=== PATIENT | male | born 1955 | race Caucasian/White ===

== ENCOUNTER → 2025-06-11 08:06 | Outpatient (CLI) | payer MEDICARE, SELFPAY ==
--- NOTE | 2025-06-11 08:21 | EKG_ITS ---
[address] [address] Test Date: 2025-06-11 Pat Name: Adithya Mansfield Department: [facility] Room: Gender: Male Vice President Of Business Development: : 1955 Requested By: Order Number: [id number] Reading MD: Shashi Carter Measurements Intervals [place] Rate: 62 P: 35 DE: 204 QRS: -33 QRSD: 88 T: 38 QT: 398 QTc: 403 Interpretive Statements Normal sinus rhythm Left axis deviation Electronically Signed On 06-11-2025 10:16:42 PDT by Shashi Carter
[2025-06-11 10:34] LABS: Add Manual Diff / Slide Review NO; Hematocrit 39.9 % (41-53); Hemoglobin 13.6 g/dL (13.5-17.5); Lymphocytes Absolute Auto 1200 /uL (1100-4500); Mean Corpuscular HGB Conc 34.2 % (30-36); Mean Corpuscular Hemoglobin 35.3 PG (26-34); Mean Corpuscular Volume 103.4 fL (80-100); Platelet Count 215 X10^3/uL (150-400)
[2025-06-11 11:06] LABS: HEMOLYSIS < 15 (0-50); Iron 157 ug/dL (49-181)
[2025-06-11 11:07] LABS: Albumin 4.5 g/dL (3.5-5.0)
[2025-06-11 11:10] LABS: Alanine Aminotransferase 16 IU/L (<50); Albumin 4.5 g/dL (3.5-5.0); Albumin Globulin Ratio 1.7 (1.0-2.8); Alkaline Phosphatase 57 U/L (38-126); Blood Urea Nitrogen 13 mg/dL (9-20); Carbon Dioxide 24 mmol/L (22-32); Chloride 105 mmol/L (98-107); Estimated Glomerular Filt Rate > 60 mL/min (>60); Globulin 2.7 g/dL (1.7-4.1); HEMOLYSIS < 15 (0-50); Potassium 4.4 mmol/L (3.4-5.1); Sodium 137 mmol/L (137-145); Total Protein 7.2 g/dL (6.3-8.2)
[2025-06-11 11:15] LABS: Prealbumin 27.5 mg/dL (17.6-36.0)
[2025-06-11 11:19] LABS: Percent Iron Saturation 48 % (20-50); Total Iron Binding Capacity 329 ug/dL (261-462); Transferrin 275 mg/dL (206-381)
[2025-06-11 11:19] LABS: Hemoglobin A1C% w Est Avg Glu 5.5 % (4.0-6.0)
[2025-06-11 11:25] LABS: Vitamin D 25 Hydroxy (D3) 46.9 ng/mL (30.0-100.0)
[2025-06-11 11:38] LABS: Thyroid Stimulating Hormone 1.60 uIU/mL (0.47-4.68)
[2025-06-11 11:44] LABS: Ferritin 62 ng/mL (18-464)
[2025-06-11 12:26] LABS: Calcium 9.4 mg/dL (8.4-10.2); Glucose 139 mg/dL (70-99)
== END ==
PROVIDERS: Orthopaedic Surgery Adult Reconstructive Orthopaedic Surgery; PCP Student in an Organized Health Care Education/Training Program; Referring Provider Student in an Organized Health Care Education/Training Program; Visit Provider Student in an Organized Health Care Education/Training Program
DX: Z01.818 Encounter for other preprocedural examination (principal); M25.561 Pain in right knee; R53.83 Other fatigue; M17.0 Bilateral primary osteoarthritis of knee; Z86.79 Personal history of other diseases of the circulatory system; I82.890 Acute embolism and thrombosis of other specified veins; R01.1 Cardiac murmur, unspecified; G89.29 Other chronic pain
CPT/HCPCS: 36415; 80053; 82040; 82306; 82728; 83036; 83540; 83550; 84134; 84443; 85025; 93005

== ENCOUNTER 2025-07-13 06:16 | Day surgery (SDC) | payer MEDICARE, SELFPAY ==
[2025-07-07 08:34] VITALS: BMI 27.1
[2025-07-13] VITALS (7 sets, daily range): BP systolic 117–148; BP diastolic 56–78; PULSE 71–84; RESP 14–17; TEMP 36.2–36.7; O2SAT 95–98
--- NOTE | 2025-07-13 | DI.RAD.S_ITS ---
PROCEDURE: XR KNEE RT 1TO2V
[2025-07-13] MEDS: ACETAMINOPHEN 325 MG TABLET 975 MG PO (07:12)
[2025-07-13] MEDS: LACTATED RINGERS 1,000 ML 42 ML IV ×2 (07:12→08:47)
--- NOTE | 2025-07-13 07:15 | P.OP.PRE_ITS ---
Pre-operative Note
--- NOTE | 2025-07-13 07:15 | PM.PREOP ---
Pre-operative Note Interval Note History & Physical reviewed/Exam performed by Physician: Yes Changes to H&P: No
[2025-07-13] MEDS: TRANEXAMIC ACID 1,000 MG VIAL 1000 MG INJ ×2 (08:00→09:12)
--- NOTE | 2025-07-13 08:28 | SUR.OPER ---
Supine on padded OR bed. Pillow under head, arms secured on padded armboards <90 degree abduction. Safety belt across torso. Non-operative left leg secured with tape over blanket over lower leg. Operative left leg secured in DeMayo/Jeremy/Nathe positioner. Foam padded brace at thigh of operative leg. Surgeon approves of final positioning.
[2025-07-13] MEDS: KETOROLAC 30 MG/ML VIAL 15 MG IV (08:39)
--- NOTE | 2025-07-13 09:19 | P.OP_ITS ---
Operative Date/Time/Diagnoses
--- NOTE | 2025-07-13 09:19 | PM.OP.1 ---
Operative Date/Time/Diagnoses Date of procedure: 07/13/25 Time of procedure: 07:45 Pre-op diagnosis: Right knee osteoarthritis Post-op diagnosis: same Procedure & Clinicians Procedure: Right total knee arthroplasty Same procedure(s) as scheduled: Yes Surgeon: Michael Coles Assisted?: Yes [employer] Basis Trader: Alyson Devine Anesthesia Type: General, Peripheral nerve block and Local Operative Notes Findings: Severe arthritis Applied: implant(s) Estimated Blood Loss (mL): 100 Tourniquet time (min): 34 Procedure in detail: Right Gap-Balanced Theresa Persona Medial-Congruent Primary Total Knee Arthroplasty Implants: Size 11 Cruciate Retaining Femoral Component Size G Tibial Component Size 10 Medial Congruent Polyethylene Insert Unresurfaced Patella Procedure Summary: This 69-year-old male patient had varus knee arthritis. I cut the tibia in slight varus in order to balanced the knee without the need for soft tissue releases. Bone quality was good so uncemented fixation was utilized. The knee balanced in 0? of external rotation for the flexion gap. Procedure in Detail: This patient was seen preoperatively and evaluated for knee pain which was refractory to numerous nonoperative treatment modalities. Their pain correlated with radiographic changes demonstrating significant degeneration in the knee joint. The risks and benefits of continued nonoperative management versus operative management were discussed at length and all of the patient?s questions were answered. Additional educational materials providing further details beyond our discussion in clinic were provided via a publicly available patient education video which included the incidence of medical complications associated with total knee arthroplasty, reasons for revision following total knee arthroplasty, and patient satisfaction rates following total knee arthroplasty. With this understanding of the risks inherent to the procedure, the patient elected to move forward with operative management. Following preoperative optimization, the patient was scheduled for surgery. The patient was met in the preoperative holding area the day of the procedure and all questions were answered. The patient?s nares were swabbed in order to decolonize them from MRSA. Informed consent was signed and the right limb was marked with indelible ink.? The patient was brought back to the operating room where anesthesia was induced. The patient was transferred to the operating table and all bony prominences were padded. The operative site was prepped and draped in the usual sterile fashion. A second prep stick was utilized following drape placement. The incision was marked corresponding to the medial aspect of the tibial tubercle and the patella. Ioban was wrapped circumferentially around the knee. Prior to incision, tranexamic acid and cefazolin were administered. Templating images were displayed. A timeout procedure was performed verifying the patient?s identity, medical comorbidities, allergies, relevant medications, anesthesia type and the surgical plan. All present were in agreement. The assistance of a physician bilingual sales assistant was required for positioning, room setup, soft tissue retraction and wound closure. Without this assistance, the procedure would have been significantly more challenging and time consuming.?? The tourniquet was inflated prior to incision. I made an anterior incision over the knee, dissected through the subcutaneous tissues and identified the lateral border of the VMO. Medial and lateral soft tissue flaps were developed. A mid-vastus arthrotomy was performed ensuring that adequate capsular tissue would remain for closure at the conclusion of the procedure. The knee was brought into extension and the medial soft tissues were released off the joint line of the tibia. Tissue overlying the distal anterior femur was released to allow for later assessment for anterior notching but left in place. A portion of the retropatellar fat pad was excised while protecting the patellar tendon. The patella was everted. The patella was not resurfaced. Osteophytes were excised and a lateral facetectomy was performed. The patella was released from its everted position.?? I flexed the knee to 90 degrees and placed retractors to allow access to the notch. An opening reamer was used to gain access to the femoral canal and an intramedullary lalit was introduced into the canal. Diaphyseal fit was obtained in order to plan a distal femoral resection at 5 degrees relative to the anatomic axis. A +1 resection was planned and assessed using an jacinta wing. I then made the cut using a sagittal saw. This provided additional access to the femoral notch. The ACL and PCL were excised. Retractors were placed on the lateral and medial tibia. I hyperflexed the knee while externally rotating it to sublux the tibia anteriorly. I placed a Deonte retractor posteriorly and used this to provide additional anterior subluxation. The remainder of the PCL root was released. An extramedullary guide was positioned for a resection in slight varus. A +2 resection off the medial tibia was planned and the tibial cutting jig was pinned in place. I evaluated the depth, varus-valgus alignment and slope of the planned tibial resection prior to making the cut. I cut the tibia with a sagittal saw while using retractors to protect the MCL, patellar tendon, and posterolateral structures.? The knee was repositioned in extension and the Fuzion soft tissue balancing gauge was introduced. This demonstrated that there was 1 degree of tightness medially relative to laterally. Given the medial congruent design of this implant I did not perform a medial release in order to attempt to equalize this. When 40 pounds of force was applied to the Fuzion device, the extension gap opened to 10 mm. I moved the knee into 90 degrees of flexion, and the Fuzion device was recalibrated by removing a 9 mm soo to allow assessment of the flexion gap. The Fuzion block was placed perpendicular to the resected surface of the tibia and the resected surface of the distal femur. Forty pounds of traction was applied to match the tension of the extension gap. This externally rotated the femur to 0 degrees. Pins were placed in the 10 mm holes. Appropriate sizing was determined and a 4-in-1 block was placed. This was double checked using the Fuzion device to ensure that it would open to an equal distance as the extension gap when the same amount of force was applied. The Fuzion block was also used to assess flexion gap symmetry. An jacinta wing was used to ensure there would be no anterior notching. Retractors were placed to protect the soft tissues during resection. Captured cuts were performed with a sagittal saw for the anterior and posterior femur as well as the corresponding chamfers.?A laminar lock setter and retractors were used to expose the posterior knee and the menisci and posterior osteophytes were removed. Trial components were placed and the construct was assessed. Range of motion was assessed by ensuring the knee could achieve full extension and assessing maximum passive knee flexion by elevating the femur and allowing the heel to passively fall towards the buttock. Gap symmetry was assessed by stressing the medial and lateral compartments in both extension and flexion. Laxity was assessed in both extension and flexion and the polyethylene trial was adjusted with shims as necessary. Patellar tracking was assessed with knee flexion. Once satisfied with the construct, I moved forward with implant insertion. Lug holes were drilled in the femur and the tibia was prepped ensuring appropriate sizing and rotation relative to the tibial tubercle.?? The bony ends were irrigated. A portion of the anterior chamfer cut was utilized as a to plug the hole from the intramedullary lalit in the femur. I impacted the tibial component into place. The tibia was reduced underneath the femur. I placed the femoral component. I brought the knee into extension and manually pressurized the construct by pushing on the heel. The knee was bathed in a dilute mixture of betadine and peroxide. A mixture of Ropivacaine, Epinephrine and Toradol was infiltrated throughout the soft tissues into structures including the VMO, patellar tendon, quadriceps tendon, MCL and femoral periosteum. The knee was copiously irrigated with pulse lavage. The knee was again trialed. Range of motion was assessed by ensuring the knee could achieve full extension and assessing maximum passive knee flexion by elevating the femur and allowing the heel to passively fall towards the buttock. Gap symmetry was assessed by stressing the medial and lateral compartments in both extension and flexion. Laxity was assessed in both extension and flexion and the polyethylene trial was adjusted with shims as necessary. Patellar tracking was assessed with knee flexion. The tourniquet was let down and the polyethylene trial was removed. I inspected the knee inspected for any residual bleeding. Once hemostasis was achieved I inserted the final polyethylene and ensured appropriate engagement of the dovetail locking mechanism.?? The arthrotomy was closed with non-absorbable interrupted suture ensuring that this extended to the top of the arthrotomy. This was backed up with running barbed suture throughout the arthrotomy. The skin was closed with 2-0 and 3-0 sutures. Surgical glue was applied and a soft dressing was placed.?The sponge, instrument and needle counts were reported as being correct at the end of the case. The patient was transferred from the operating table back to a stretcher. The patient emerged from anesthesia without difficulty and was taken to the PACU in a stable condition.? Plan for aftercare: Weightbearing as tolerated Aspirin 81 twice per day for DVT prophylaxis Multimodal pain regimen with no IV opioids ordered Anticipate discharge home later today Follow up at [facility] in 2 weeks for wound check Complications: none Post-operative Condition: stable Disposition: same day surgery
[2025-07-13] MEDS: MELOXICAM 7.5 MG TABLET 15 MG PO (10:56)
--- NOTE | 2025-07-13 12:22 | PT.IIE ---
Current Diagnoses Unilateral primary osteoarthritis, right knee (07/13/25) Surgery Performed Operation Date: 07/13/25 07:45 Actual Procedures p Total Knee Arthroplasty(Right) - Michael Coles MD Surgical History (Last Updated 07/07/25 @ 09:12 by Tatyana Suarez RN) H/O laminectomy (1983) History of back surgery (1988) Hx of tonsillectomy Medical History (Last Updated 05/15/25 @ 17:28 by Michael Coles MD) Primary osteoarthritis of both knees Physical Therapy Inpatient Evaluation/Re-Eval M1 PT IP Prior Functional Status Start: 07/13/25 12:10 Freq: NEEDED Status: Active Protocol: Document 07/13/25 12:11 AMB (Rec: 07/13/25 12:22 AMB [id number]) Medical Review Prior Functional Status Medical History Yes Reviewed Communication WFL Mobility and Gait Ambulating in the community without AD Social History Household Members spouse Living Arrangements House Number of Floors ( One Floor Floors) Number of Stairs To 18 steps to enter Enter/Railing? Home Equipment Front Wheel Walker M2 PT-IP Current Condition Start: 07/13/25 12:10 Freq: NEEDED Status: Active Protocol: Document 07/13/25 12:11 AMB (Rec: 07/13/25 12:22 AMB [id number]) Physical Therapy Current Condition Current Condition Evaluation Date 07/13/25 Treatment Diagnosis R TKA Onset Date 07/13/25 M3 PT-IP Subjective Start: 07/13/25 12:10 Freq: NEEDED Status: Active Protocol: Document 07/13/25 12:11 AMB (Rec: 07/13/25 12:22 AMB [id number]) Subjective Physical Therapy Visit Type Type Initial Evaluation Visit Start Time 11:00 Visit Stop Time 11:45 Physical Therapy Visit Comments Patient Comments Pt is dressed and sitting up on side of bed, Pt's is present Therapy Pain Assessment Pain When Pain Assessed During Mobility Pain Present Pain Present Pain Reported Location right knee Intensity 2 Scale Used Numeric (0 - 10) Description With Movement Pain Management Apply Cold Techniques M4 PT-IP Mobility and Gait Start: 07/13/25 12:10 Freq: NEEDED Status: Active Protocol: Document 07/13/25 12:11 AMB (Rec: 07/13/25 12:22 AMB [id number]) PT-Transfer Assessment Sit to and From Stand Sit to and from Standby Assistance Stand Equipment Transfer Assistive Front Wheeled Walker Device Transfers Transfer Destination Bed Transfer Technique Stand Step Pivot Transfer Ability Level of Assist Standby Assistance Gait Assessment Gait Gait Assistance Contact Guard Assist Required: Distance (Feet) 20 Able to Maintain Yes Weight Bearing Status During Gait Assistive Devices Assistive Device Front Wheeled Walker Gait Deviations General Gait Pattern Antalgic Factors Limiting Gait Function Factors Limiting Decreased Sensation,Decreased Strength,Limited Range of Gait Function Motion,Pain Comments Gait Comments Isabela needed verbal cues to keep body closer to the FWW, especially with turning. Encouraged to slow down with turning, to keep feet inside. Otherwise he was able to ambulate around the PACU with appropriate safety. His personal FWW was not present, instructed how to tell if it is the appropriate height for him. Stair Climbing Assessment Evaluation Level of Assist On Contact Guard Assistance Stairs Devices Stair Climbing Front Wheel Walker Assistive Devices Technique/Endurance Stair Climbing Ascend and Descend Direction Stair Climbing Step to Step Technique Number of Steps 1 Climbed Query Text: Stair Climbing Set # 2 Repetitions (reps) Comments Stair Climbing Instructed pt to ascend up a step with the FWW and a Comments step to gait. Pt has 18STE with railings but this is difficult to reproduce in the PACU. He had appropriate safety of the 1 step that was trialed. M5 PT-IP Objective Assessments Start: 07/13/25 12:10 Freq: NEEDED Status: Active Protocol: Document 07/13/25 12:11 AMB (Rec: 07/13/25 12:22 AMB [id number]) Orientation Orientation/Cognition Level of Alertness Alert Gross Range of Motion Lower Extremity ROM Assessment Right Impaired Strength Lower Extremity Strength Assessment Right Impaired M6 PT-IP Treatment Start: 07/13/25 12:10 Freq: NEEDED Status: Active Protocol: Document 07/13/25 12:11 AMB (Rec: 07/13/25 12:22 AMB [id number]) Physical Therapy Treatment Exercises Exercises Ankle Pumps,Gluteal Sets,Quad Sets,Heel Slides,Straight Leg Raises,Short Arc Quads,Passive Knee Extension Hang Education Education Provided Precautions,Weight Bearing Status,Post-Op Packet,Safety M7 PT-IP Assessment and Plan Start: 07/13/25 12:10 Freq: NEEDED Status: Active Protocol: Document 07/13/25 12:11 AMB (Rec: 11/03/25 12:22 AMB [id number]) PT Summary Assessment and Plan Potential Rehabilitation Excellent Potential Status of Condition Stable at Evaluation Summary Impairments Pain,ROM,Strength,Sensation,Transfers,Gait,Activity Tolerance Assessment Summary Isabela was instructed verbally and with a written HEP since it may take a week or two for him to get into outpatient PT. Discussed at length appropriate activity level, icing, exercise at home. He had a tendency to move quickly with the walker, but he was instructed to be slow and safe with the walker at this time. He was able to safely ascend 1 step and he and his were instructed in appropriate stair safety. He is cleared to d/c home with outpatient PT and family help when medically stable. Goals Bed Mobility Goal Independent Transfer Goal Independent Gait Goal Standby Assistance Gait Distance 100 Other Goals 18STE bilateral railings CGA Days to Meet Goals 2 Frequency of Treatment Frequency Of Discharge Treatment Treatment Plan Physical Therapy Bed Mobility Training,Transfer Training,Gait Training, Treatment Plan Therapeutic Exercise,Balance Retraining,Post Op Education Weight Bearing Status Weight Bearing Weight Bear as Tolerated Status Recommendations To Nursing Amount of Assist 1 Person Assist Needed Discharge Recommendations PT Discharge Home with Assistance,Outpatient PT Recommendations Transportation Needs Private Vehicle at Discharge - PT assist 1
== END 2025-07-13 12:00 | disposition home or self-care (01) ==
PROVIDERS: Family Provider Student in an Organized Health Care Education/Training Program; PCP Student in an Organized Health Care Education/Training Program; Referring Provider Student in an Organized Health Care Education/Training Program; Visit Provider Orthopaedic Surgery Adult Reconstructive Orthopaedic Surgery
PROC: 0SRC0JZ Replacement of Right Knee Joint with Synthetic Substitute, Open Approach (ICD-10-PCS; CPT 27447; principal; 2025-07-13 07:45)
DX: M17.11 Unilateral primary osteoarthritis, right knee (principal); M21.161 Varus deformity, not elsewhere classified, right knee; M25.761 Osteophyte, right knee
CPT/HCPCS: 27447; 73560; 82962; 97116; 97161; C1776; C1713; J0330; J0689; J1100; J1171; J1885; J2405; J2704; J3010; J7120